=== PATIENT | female | born 1985 | race African-American/Black ===

== ENCOUNTER → 2017-10-13 | Outpatient (CLI) | payer OTHER ==
[2017-01-15 16:45] VITALS: BP 112/73
[~2017-10-13] MED LIST: ASPI81TA50 PO; BUPIVACAINE MPF 0.25% 10 ML VIAL. ONE; CALC667C6 PO; HYDR-971 PO; OSEL75CA PO; PNV1TABL25 PO; PROM25SU33 RC; methylPREDNISolone ACETATE 40 MG/ML VIAL. ONE
[2017-10-13 11:21] LABS: U PREG PATIENT NEGATIVE (NEG)
== END | disposition home or self-care (01) ==
LOC: SURG 10:10
PROVIDERS: ATTEND Anesthesiology Pain Medicine
DX: M79.1 Myalgia (principal); M51.36 Other intervertebral disc degeneration, lumbar region; M47.816 Spondylosis without myelopathy or radiculopathy, lumbar region; M19.91 Primary osteoarthritis, unspecified site; I10 Essential (primary) hypertension; Z72.0 Tobacco use
CPT/HCPCS: 20553; 81025; 99204; J1030; J3490